=== PATIENT | male | born 1960 | race Caucasian/White ===

== ENCOUNTER 2025-06-11 11:27 | Outpatient (CLI) | payer MEDICARE, SELFPAY ==
[2025-06-11 14:35] LABS: ALT 35 U/L (10-49); AST 25 U/L (<34); Albumin 4.4 g/dL (3.2-5.0); Alkaline Phosphatase 67 U/L (46-116); Anion Gap 6.2 mmol/L (3-11); BUN 18 mg/dL (9-23); Bilirubin, Total 0.50 mg/dL (0.2-1.2); CO2 26.8 mmol/L (20.0-31.0); Calcium 9.4 mg/dL (8.3-10.6); Chloride 110 mmol/L (98-107); Cholesterol 299 mg/dL (<200); Glucose 97 mg/dL (74-106); HDL Cholesterol 47 mg/dL (>40); Potassium 4.3 mmol/L (3.5-5.1); Sodium 143 mmol/L (136-145); TSH 1.43 uIU/mL (0.55-4.78); Total Protein 7.2 g/dL (5.7-8.2); Vitamin D 25 Total 16 ng/mL (30-100)
[2025-06-11 14:49] LABS: Hemoglobin A1C 5.2 % (<5.7)
[2025-06-11 15:13] LABS: Vitamin B12 614 pg/mL (211-911)
[2025-06-11 23:09] LABS: PSA, Screening 0.7 ng/mL (<=4.5)
== END 2025-06-11 11:28 | disposition home or self-care (01) ==
LOC: LBO 11:27
PROVIDERS: PCP Nurse Practitioner Family; Visit Provider Nurse Practitioner Family
DX: I10 Essential (primary) hypertension (principal)
CPT/HCPCS: 36415; 80053; 80061; 82306; 83090; 84153; 82607; 83036; 84154; 84439; 84443

== ENCOUNTER 2025-07-05 10:40 | Outpatient (CLI) | payer MEDICARE, SELFPAY ==
--- NOTE | 2025-07-05 10:30 | RT.EKG_ITS ---
APPROVED REPORT Exam: Resting ECG Reason for Exam: CAD Patient Location: O HR:72 bpm ECG Measurements Heart Rate 72 AXIS MD 156 P 46 QRSd 96 QRS 28 QT 375 T -21 QTc 411 Conclusion Sinus rhythm...normal P axis, V-rate 50- 99 Probable left atrial enlargement...P >50mS, <-0.10mV V1 Borderline low voltage, extremity leads...all extremity leads <0.6mV Nonspecific T abnormalities, inferior leads...T <-0.10mV, II III aVF
== END 2025-07-05 10:41 | disposition home or self-care (01) ==
LOC: DI.CARD 10:40
PROVIDERS: PCP Nurse Practitioner Family; Visit Provider Registered Nurse
DX: I25.10 Atherosclerotic heart disease of native coronary artery without angina pectoris (principal); I51.7 Cardiomegaly
CPT/HCPCS: 93010

== ENCOUNTER → 2025-07-05 10:46 | Outpatient (BNVA) | payer MEDICARE, SELFPAY | PROVIDERS: PCP Nurse Practitioner Family; Referring Provider Nurse Practitioner Family; Visit Provider Registered Nurse | DX: I25.10 Atherosclerotic heart disease of native coronary artery without angina pectoris (principal); I10 Essential (primary) hypertension; Z79.01 Long term (current) use of anticoagulants | CPT/HCPCS: 99204; 93005 ==